=== PATIENT | female | born 1975 | race American Indian/Alaskan Native ===

== ENCOUNTER 2018-04-29 12:22 | Emergency (ER) | payer OTHER ==
[~2018-04-29] VITALS: Ht 157.5 cm; Wt 56.7 kg
[2018-04-29 13:07] LABS: PLATELET COUNT 436 K/uL (152-353)
[2018-04-29 13:10] LABS: POTASSIUM 3.7 mmol/L (3.6-5.2)
[2018-04-29 15:34] VITALS: BP 109/67; TEMP 99
== END 2018-04-29 15:32 | disposition home or self-care (01) ==
LOC: ED 12:22
PROVIDERS: Family Medicine
DX: D64.89 Other specified anemias (principal)
CPT/HCPCS: 36415; 36591; 80053; 81000; 82272; 85027; 99284

== ENCOUNTER 2018-06-24 12:02 | Outpatient (CLI) | payer OTHER | END 2018-06-24 23:15 | disposition home or self-care (01) | LOC: MAMMO 12:02 | DX: Z12.31 Encounter for screening mammogram for malignant neoplasm of breast (principal) ==

== ENCOUNTER 2018-07-08 10:08 | Outpatient (CLI) | payer OTHER | END 2018-07-08 11:08 | disposition home or self-care (01) | LOC: MAMMO 10:08 | DX: R92.8 Other abnormal and inconclusive findings on diagnostic imaging of breast (principal) ==

== ENCOUNTER 2021-02-15 09:22 | Outpatient (CLI) | payer OTHER | END 2021-02-15 19:44 | disposition home or self-care (01) | LOC: MAMMO 09:22 | PROVIDERS: ATTEND Nurse Practitioner Family | DX: Z12.31 Encounter for screening mammogram for malignant neoplasm of breast (principal) ==

== ENCOUNTER 2022-02-20 09:55 | Outpatient (CLI) | payer BC | END 2022-02-20 22:18 | disposition home or self-care (01) | LOC: MAMMO 09:55 | PROVIDERS: ATTEND Nurse Practitioner Family | DX: Z12.31 Encounter for screening mammogram for malignant neoplasm of breast (principal) ==